=== PATIENT | female | born 2000 | race Caucasian/White ===

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

== ENCOUNTER → 2023-01-16 | Outpatient (CLI) | payer OTHER ==
[~2023-01-16] MED LIST: DOCU100 PO; IBUP800 PO; QUET100 PO
[2023-01-16 14:27] LABS: Hematocrit 32.8 % (33.0-51.0)
== END | disposition home or self-care (01) ==
LOC: LAB SHORT 13:29 → LAB 13:29
PROVIDERS: Registered Nurse Community Health
DX: Z34.82 Encounter for supervision of other normal pregnancy, second trimester (principal); Z3A.00 Weeks of gestation of pregnancy not specified
CPT/HCPCS: 82950; 85014; 85018

== ENCOUNTER 2023-03-30 22:35 | Inpatient (IN) | payer OTHER ==
[~2023-03-30] VITALS: Ht 162.6 cm; Wt 74.0 kg
[2023-03-30 23:19] LABS: BASOPHILS ABSOLUTE AUTO 0.05 K/mm3 (0.00-0.23); BASOPHILS PERCENT AUTO 0 % (0-2); EOSINOPHILS ABSOLUTE AUTO 0.09 K/mm3 (0.00-0.68); EOSINOPHILS PERCENT AUTO 1 % (0-6); Hematocrit 34.4 % (33.0-51.0); Hemoglobin 11.4 g/dL (11.5-16.0); IMMATURE GRAN PERCENT AUTO 1 % (0-1); LYMPHOCYTES ABSOLUTE AUTO 2.55 K/mm3 (0.84-5.20); LYMPHOCYTES PERCENT AUTO 17 % (21-46); MONOCYTES ABSOLUTE AUTO 0.78 K/mm3 (0.16-1.47); MONOCYTES PERCENT AUTO 5 % (4-13); Mean Corpuscular HGB 28.1 pg (26.0-34.0); Mean Corpuscular HGB Conc 33.1 g/dL (31.5-36.5); Mean Corpuscular Volume 85 fL (80-100); Mean Platelet Volume 10.4 fL (9.1-12.4); NEUTROPHILS ABSOLUTE AUTO 11.14 K/mm3 (1.96-9.15); NEUTROPHILS PERCENT AUTO 76 % (41-73); Platelet Count 219 K/mm3 (150-400); RDW Coefficient Variation 14.6 % (11.7-14.2); RDW Standard Deviation 44.5 fL (35.1-46.3); Red Blood Cell Count 4.06 M/mm3 (3.80-5.20); White Blood Cell Count 14.71 K/mm3 (4.00-11.30)
[2023-03-30] MEDS ORDERED: UNISOM PM PAIN1 EACH (23:35)
[2023-03-30 23:45] VITALS: BP 131/94
[2023-03-31] VITALS (23 sets, daily range): BP systolic 114–203; BP diastolic 64–149
[2023-03-31 06:53] LABS: Hematocrit 30.4 % (33.0-51.0); Hemoglobin 10.2 g/dL (11.5-16.0); Mean Corpuscular HGB 28.7 pg (26.0-34.0); Mean Corpuscular HGB Conc 33.6 g/dL (31.5-36.5); Mean Corpuscular Volume 85 fL (80-100); Mean Platelet Volume 10.8 fL (9.1-12.4); Platelet Count 203 K/mm3 (150-400); RDW Coefficient Variation 14.6 % (11.7-14.2); RDW Standard Deviation 44.9 fL (35.1-46.3); Red Blood Cell Count 3.56 M/mm3 (3.80-5.20); White Blood Cell Count 24.59 K/mm3 (4.00-11.30)
--- NOTE | 2023-03-31 08:30 | NUR ---
PT REPORTS HAS A HEADACHE, NOT BETTER WITH LAYING DOWN, STAYS THE SAME, NOT BETTER SITTING UP, GOES AWAY WITH STANDING, GAVE PT HEAT PAD, TALKED ABOUT POSITIONING AND THE COMFORT LEVEL OF THE BED AND POSSIBLE MUSCLE ACHES FROM DELIVERY.
--- NOTE | 2023-03-31 12:21 | NUR ---
ASSUMED CARE FROM ANGELA GARCIA AROUND 1130. PAPERWORK AND POC DISCUSSED. QUESTIONS ANSWERED. PT DOING WELL AND DENIES PAIN OR HEADACHE
[2023-04-01 06:22] VITALS: BP 105/54
[2023-04-01 08:01] VITALS: BP 121/83
== END 2023-04-01 10:35 | disposition home or self-care (01) | DRG 807 ==
LOC: OBS 22:35 → BC 22:37 → OBS 23:02 → BC 23:04
PROVIDERS: ADMIT Registered Nurse Community Health
PROC: 10E0XZZ Delivery of Products of Conception, External Approach (ICD-10-PCS; principal; 2023-03-31)
PROC: 10907ZC Drainage of Amniotic Fluid, Therapeutic from Products of Conception, Via Natural or Artificial Opening (ICD-10-PCS; 2023-03-31)
PROC: 3E0R3BZ Introduction of Anesthetic Agent into Spinal Canal, Percutaneous Approach (ICD-10-PCS; 2023-03-31)
PROC: 00HU33Z Insertion of Infusion Device into Spinal Canal, Percutaneous Approach (ICD-10-PCS; 2023-03-31)
DX: O76 Abnormality in fetal heart rate and rhythm complicating labor and delivery (principal); Z37.0 Single live birth; Z88.1 Allergy status to other antibiotic agents; Z79.899 Other long term (current) drug therapy; Z3A.39 39 weeks gestation of pregnancy
CPT/HCPCS: 36415; 51702; 59025; 85025; 85027; 86850; 86900; 86901; A9270; J1885; J2210; J2405; J7120